=== PATIENT | male | born 1950 | race Hispanic/Latino ===

== ENCOUNTER 2017-12-13 08:58 | Emergency (ER) | payer OTHER ==
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
--- NOTE | 2017-12-13 10:24 | CT ---
Date of service: 12/13/2017 PROCEDURE: CT Lumbar Spine without contrast HISTORY: back injury COMPARISON: None available. TECHNIQUE: Axial computed tomography images were obtained of the lumbar spine without the use of intravenous contrast. Coronal and sagittal reformatted images were created and reviewed. Radiation dose: Total exam DLP = 1800 mGy-cm. This CT exam was performed using one or more of the following dose reduction techniques: Automated exposure control, adjustment of the mA and/or kV according to patient size, and/or use of iterative reconstruction technique. FINDINGS: VERTEBRAE: Unremarkable. No fracture. Normal alignment. DISCS/SPINAL CANAL/NEURAL FORAMINA: L1-2: Unremarkable. L2-3: Unremarkable. L3-4: Facet arthropathy without stenosis L4-5: There is a disc bulge and facet arthropathy with mild stenosis at L4-5 L5-S1: There is facet arthropathy and disc degeneration with osteophytes and severe right-sided foraminal stenosis. There is mild left-sided stenosis PARASPINAL SOFT TISSUES: Unremarkable. OTHER FINDINGS: None. IMPRESSION: No acute findings. Degenerative changes in the lower lumbar spine as described above.
[2017-12-13 11:09] VITALS: BP 123/85; PULSE 75; RESP 20; TEMP 98; O2SAT 99
== END 2017-12-13 11:05 | disposition home or self-care (01) ==
LOC: ED 08:58
DX: S33.5XXA Sprain of ligaments of lumbar spine, initial encounter (principal); X50.0XXA Overexertion from strenuous movement or load, initial encounter; Y92.89 Other specified places as the place of occurrence of the external cause
CPT/HCPCS: 72131; 96372; 99283; J1885